=== PATIENT | male | born 1940 | race Caucasian/White ===

== ENCOUNTER 2020-08-04 12:22 | Outpatient (CLI) | payer OTHER | END 2020-08-04 12:37 | disposition home or self-care (01) | LOC: RAD 12:22 | DX: D47.3 Essential (hemorrhagic) thrombocythemia (principal); N18.4 Chronic kidney disease, stage 4 (severe); D63.1 Anemia in chronic kidney disease ==

== ENCOUNTER 2020-12-22 10:35 | Outpatient (CLI) | payer OTHER | END 2020-12-22 10:43 | disposition home or self-care (01) | LOC: RAD 10:35 | PROVIDERS: ATTEND Internal Medicine | DX: M85.88 Other specified disorders of bone density and structure, other site (principal) ==

== ENCOUNTER 2021-05-25 11:10 | Outpatient (CLI) | payer OTHER | END 2021-05-25 11:17 | disposition home or self-care (01) | LOC: RAD 11:10 | PROVIDERS: ATTEND Internal Medicine | DX: C90.00 Multiple myeloma not having achieved remission (principal) ==